=== PATIENT | female | born 1955 | race Caucasian/White ===

== ENCOUNTER 2023-03-12 10:20 | Outpatient (CLI) | payer MEDICARE, MEDICAID ==
[~2023-03-12] VITALS: Ht 160 cm; Wt 56.7 kg
[~2023-03-12 10:20] MED LIST: APIX5TAB3 PO; DILT30TA5 PO; NO HOME MEDS
[2023-03-12] MEDS ORDERED: albuterol 2.5 MG/3 ML nebule NEB PRN (11:30)
== END 2023-03-12 23:59 | disposition home or self-care (01) ==
LOC: RT 10:20
PROVIDERS: ATTEND Physician Assistant Medical
DX: R05.9 Cough, unspecified (principal); F17.210 Nicotine dependence, cigarettes, uncomplicated; Z79.899 Other long term (current) drug therapy
CPT/HCPCS: 94010

== ENCOUNTER 2025-01-21 14:04 | Emergency (ER) | payer MEDICARE, MEDICAID ==
[~2025-01-21] VITALS: Ht 160 cm; Wt 55.9 kg
[2025-01-21 14:13] VITALS: BP 121/85; PULSE 101; RESP 18; O2SAT 99
--- NOTE | 2025-01-21 15:19 | Physician Documentation ---
HPI ~ General Chief Complaint: Tooth Problem Stated Complaint: TOOTH INFECTION Time Seen by MD: 15:34 History of Present Illness HPI Comment Is a very pleasant 69-year-old female that reports to the emergency department for evaluation of tooth pain with associated swelling to the lower right jaw and lymph nodes. Reports that she has had ongoing issues with that tooth for sever al years and has had it filled multiple times. Patient denies any fever chills nausea vomiting diarrhea, swallowing or any airway concerns at this time but does report significant pain to that tooth in the right jaw. Medication Reconciliation Allergies: Coded Allergies: Iodinated Contrast Media (Verified Allergy, Severe, KIDNEYS SHUT DOWN, 05/28/22) Scheduled Apixaban (Eliquis), 5 MG PO BID Scheduled PRN Diltiazem HCl (Diltiazem HCl), 0.5 TAB PO Q6H PRN for TACHYCARDIA Miscellaneous Medications Home Med List (No Home Medications), (Reported) Past Medical History Past Medical History: Coronary Artery Disease, Hypertension, *INFECTIOUS DZ*, Anxiety Past Surgical History: noncontributory Alcohol Use: None Drug Use: none Lives In: Home Review of Systems ROS As stated above in the HPI, otherwise all systems are reviewed and negative. Physical Exam Vital Signs: Temperature: 97.1, Source: Temporal, Heart Rate: 101, Respiratory Rate: 18, BP: 121/85, Pulse Oximetry: 99, Weight: 55.900 Oxygen Flow Rate: 0 Physical Exam VITALS: Reviewed and as above. GENERAL: Alert, no apparent distress. HEENT: Normocephalic, atraumatic, PERRL, EOMI, dry mucosa, no erythema, mild edema area of abscess noted to the right lower gumline at approximately the 2nd molar noted during examination, associated swelling to the right cheek with mild length adenopathy noted. RESPIRATORY: Lungs clear, normal breath sounds, no respiratory distress. CHEST: No accessory muscle use, no retractions CV: Regular rate, rhythm, no edema, no murmur, No: JVD GI: Soft, non-tender, bowels sounds present, no rebound, guarding, or rigidity BACK: No CVA tenderness, or swelling MUSCULOSKELETAL No deformities, no edema SKIN: Warm and dry, no rash NEURO: Oriented x4, No motor or sensory deficit PSYCH: Normal mood and affect, no agitation Progress Results/Orders Results/Orders Vital Signs 01/21/25 14:13 Temp 97.1 Pulse 101 Resp 18 B/P (MAP) 121/85 Pulse Ox 99 O2 Flow Rate 0 Medical Decision Making Additional information obtaine: other Findings 69-year-old female presented with tooth pain localized to the lower left jaw, associated with headache, jaw pain, discomfort, and lymphadenopathy. Exam revealed an obvious abscess along the gumline. The patient denied fever, chills, nausea, vomiting, or diarrhea. Assessment: Findings are consistent with a localized acute apical abscess with regional lymphadenopathy, but without systemic symptoms such as fever or malaise. Given the presence of lymphadenopathy and inability to provide definitive dental intervention in the ED, oral antibiotics are indicated per [employer] [place] [employer] guidelines. Augmentin (amoxicillin/clavulanate) is appropriate for coverage of oral pathogens, especially in cases where first-line agents may be insufficient or there is concern for broader coverage.[1] Interventions: First dose of Augmentin administered in the ED. Patient discharged with prescription for continued oral Augmentin. Pain management discussed; NSAIDs and acetaminophen recommended as first-line analgesics unless contraindicated. Disposition and Follow-up: Patient is immunocompetent and stable for discharge. Advised to follow up with primary care provider and dental specialist for definitive management (e.g., root canal, incision and drainage).Instructed to return to ED for any worsening or recurrent symptoms, including increased pain, swelling, fever, chills, nausea, vomiting, difficulty swallowing, airway concerns, or other discussed symptoms. Patient educated on signs of antibiotic failure and adverse drug reactions. MDM Rationale: Antibiotic therapy is indicated due to abscess with lymphadenopathy and lack of immediate access to definitive dental care. Close follow-up and clear return precautions provided per guideline recommendations. Differential Dx:Considerations: Include: Alveolar fracture, Alveolar osteitis, ANUG, Facial Cellulitis, Periapical abscess, Peridontal abscess, Post-extraction bleeding, Pulpitis, Tooth avulsion, Tooth eruption, Tooth Fracture, Trigeminal neuralgia, Tooth subluxation, Other Departure Disposition: 01 HOME / SELF CARE / HOMELESS Impression: Primary Impression: Dental abscess Additional Impressions: Swelling of gums Pain Condition: Stable Discharge Instructions: Dental Pain, Dental Abscess Additional Instructions: You came to the emergency department with tooth pain in your lower left jaw, headache, jaw discomfort, and swelling along your gumline. You also have some swelling of the lymph nodes in your neck. There are no signs of fever, chills, nausea, vomiting, or diarrhea. Treatment: You received your first dose of Augmentin (an antibiotic) here. Continue taking Augmentin as prescribed. For pain, you may use ibuprofen (688237 mg) and acetaminophen (1000 mg) together, unless you have been told not to use these medicines. Follow-up: Please make an appointment with your primary care provider and a dentist as soon as possible for further treatment of your tooth infection. Dental procedures such as root canal or drainage may be needed for full recovery. When to seek help: Return to the emergency department or call your doctor right away if you notice any of the following: Increased pain or swelling Fever or chills Nausea or vomiting Difficulty swallowing or breathing Any new or worsening symptoms Any airway concerns Other important information: If your symptoms do not improve after 3 days, or if they get worse, contact your doctor or dentist. Stop taking the antibiotic 24 hours after your symptoms have completely resolved, unless your doctor tells you otherwise. If you develop diarrhea (especially more than 3 loose stools per day), abdominal pain, or cramping, call your doctor. If you have any questions about your medicines or symptoms, please contact your healthcare provider. Follow up with her primary care provider. Please return to the emergency department with any worsening or recurrent symptoms or any additional concerning symptoms that we discussed here today. Referrals: NO PRIMARY CARE PROVIDER (PCP) Prescriptions Amox Tr/Potassium Clavulanate 875/125 MG (Augmentin 875/125 MG) 875 Mg-125 Mg Tablet 1 TAB PO Q12H for 10 Days, #20 TAB Prov: AMANDA ANTONIO 01/21/25 Education Educated: Patient Educated regarding: diagnosis, treatment, need for follow up Signature Scribe Signature: A Attestation: Scribed for Amanda Antonio by ÁLVARO Avelar . 01/21/25 16:05 AMANDA ANTONIO Jan 21, 2025 15:19
[2025-01-21] MEDS ORDERED: AMOX-580 PO (16:03)
[2025-01-21] MEDS: amox tr/potassium clavulanate 875/125mg TAB PO ONE (16:38)
[2025-01-21 16:41] VITALS: TEMP 97.1
== END 2025-01-21 16:43 | disposition home or self-care (01) ==
LOC: ER 14:04
DX: K04.7 Periapical abscess without sinus (principal); F41.9 Anxiety disorder, unspecified; I10 Essential (primary) hypertension; I25.10 Atherosclerotic heart disease of native coronary artery without angina pectoris; Z91.041 Radiographic dye allergy status
CPT/HCPCS: 99283